=== PATIENT | male | born 1960 | race Caucasian/White ===

== ENCOUNTER 2025-01-29 22:33 | Inpatient (IN) | payer OTHER, SELFPAY ==
[2025-01-29 17:57] VITALS: BP 188/114
[2025-01-29 18:24] LABS: Hematocrit 38.7 % (39.0-52.0); Hemoglobin 13.2 g/dL (13.0-18.0); Mean Corp Hgb Conc. 34.1 g/dL (33.0-37.0); Mean Corpuscular Volume 83.9 fL (80.0-94.0); Nucleated Red Blood Cells % 0 % (-); Platelet Count 238 10^3/uL (130-400); Red Cell Dist. Width 15.5 % (11.5-14.5)
[2025-01-29 18:54] LABS: Blood Urea Nitrogen 10 mg/dl (9-20); Glucose 117 mg/dl (70-99)
[2025-01-29 18:55] LABS: AST (SGOT) 599 U/L (17-59); Albumin 4.7 g/dl (3.5-5.0); Alkaline Phosphatase 372 U/L (38-126); Calcium 9.5 mg/dl (8.4-10.2); Carbon Dioxide 24 mmol/L (22-30); Chloride 99 mmol/L (98-107); Lipase 262 U/L (23-300); Potassium 3.9 mmol/L (3.5-5.1); Sodium 132 mmol/L (135-145); Total Protein 7.7 g/dl (6.3-8.2); eGFR > 60.00
[2025-01-29 19:03] LABS: ALT (SGPT) 1002 U/L (0-50)
[2025-01-29 20:11] VITALS: BP 167/102
[2025-01-29 20:15] VITALS: BMI 26.9
--- NOTE | 2025-01-29 20:17 | ED.GENMED ---
History of Present Illness
General
Chief Complaint: Abdominal Pain
Source: patient, spouse and family
Exam Limitations: none
Time Seen by Provider: 01/29/25 19:58
Nursing documentation reviewed up to this point in time: agreed with
History of Present Illness
History of Present Illness:
64-year-old male presents with abdominal pain bloating nausea mild episode a week or so ago but improved worsened over this past weekend when he was on a trip social drinker not to excess, no IV drug use, no tattoos, daughter who is a PA thinks he
looks jaundiced, he had no exposure to seafood, he has no history of hepatitis
Review of Systems
Review of Systems
All Other Systems: Not applicable
Constitutional: Reports fatigue; Denies fever or weight loss
Respiratory: Reports no symptoms
ABD/GI: Reports abdominal pain and nausea; Denies diarrhea, bloody stools or black stools
Skin: Reports no symptoms
Neurological: Reports no symptoms
Psychiatric: Reports no symptoms
Phy Exam
Physical Exam
Physical Exam:
Physical Exam
General: no apparent distress, not acutely ill
Neck: +Jaundice
Heart: s1/s2 regular rate and rhythm, no murmur. equal radial pulses.
Lungs: no acute respiratory distress. clear bilaterally
Abdomen: Soft minimal diffuse tenderness no masses
Neuro: alert and oriented. no focal neurological deficits
Skin: no rash
Psychiatric: well kept. interactive and cooperative
Extremities: no edema.
Course
Orders/Labs/Results
Orders:
Orders
01/29/25 18:01
ECG [Electrocardiogram (*1)] Urgent
Reason for Study: Abdominal Pain
EKG- Treatment ONCE
01/29/25 18:11
Complete Blood Count/With Diff Urgent
Comprehensive Metabolic Panel Urgent
Direct Bilirubin Urgent
Comment: ADD ON
Lipase Urgent
01/29/25 19:58
HYDROmorphone [Dilaudid] 1 mg IV NOW STA
Ondansetron Injectable [Zofran] 4 mg IV NOW STA
01/29/25 19:59
CT Abd/pelvis W Iv Cont Urgent
Comment:
Reason For Exam: pain vomiting lfts up
01/29/25 20:06
Add On- LAB Urgent
Tests Added?: direct bilirubin
Abnormal Lab Results
01/29/25
18:11
RBC 4.61 L 10^6/uL
(4.70-6.10)
Hct 38.7 L %
(39.0-52.0)
RDW 15.5 H %
(11.5-14.5)
Abs Immat Gran (auto) 0.1 H 10^3/uL
(0-0.05)
Absolute Monos (auto) 0.7 H 10^3/uL
(0.1-0.6)
Immature Gran % 0.7 H %
(0-0.5)
Sodium 132 L mmol/L
(135-145)
Glucose 117 H mg/dl
(70-99)
Total Bilirubin 6.5 H mg/dl
(0.2-1.3)
Direct Bilirubin 5.0 H mg/dl
(0.0-0.4)
AST 599 H* U/L
(17-59)
ALT 1002 H* U/L
(0-50)
Alkaline Phosphatase 372 H U/L
(38-126)
01/29/25 18:11
01/29/25 18:11
Vital Signs
Initial and Last Documented VS:
Initial Vital Signs
Temp Pulse Resp BP Pulse Ox
98.1 F 85 18 188/114 97
01/29/25 17:57 01/29/25 17:57 01/29/25 17:57 01/29/25 17:57 01/29/25 17:57
Last Documented Vital Signs
Temp Pulse Resp BP Pulse Ox
98.1 F 70 20 167/102 99
01/29/25 17:57 01/29/25 20:20 01/29/25 20:20 01/29/25 20:11 01/29/25 20:18
MDM/Problems Addressed
Differential Diagnosis Includes:
Biliary obstruction pancreatitis gallbladder stone common duct stone mass malignancy acute hepatitis
MDM/Problems Addressed:
Abdominal pain LFTs out of abnormal
*Radiology
Radiology exam reviewed: radiology read reviewed
*Pulse Oximetry
SaO2: 99
Oxygen Mode of Delivery: Room air
Patient hypoxic: no
*EKG
Interpreted by ED Provider?: Yes
Interpretation: abnormal
Comparison EKG: no comparison EKG present
Heart Rate: 78
Rate: normal
Rhythm: sinus
Ischemia: non-specific ST changes
*[employer] Interpretation
Rate: normal
Interpretation: normal
Heart Rate: 78
Rhythm: sinus
*Critical Care Note
Total Time (30-74mins, 75-104mins- exclusive of procedures): Not Applicable
ED Attending Note
-
Portions of this chart may have been created with voice recognition software.� Occasional wrong word or��sound alike� substitutions may have occurred due to the inherent limitations of voice recognition software.
Discharge Plan
Departure
Prescriptions:
No Action
ascorbic acid (vitamin C) [Vitamin C] 500 mg Tablet
500 mg PO DAILY
vitamin B complex Tablet
1 tab PO DAILY
zinc 10 mg Tablet
10 mg PO DAILY
Referrals:
NONE,* [Family Provider, Internal Medicine]
Interventions
Interventions:
*Risk Screen - Suicide Last Done: 01/29/25 17:57
*General Assessment Last Done: 01/29/25 17:57
*Neglect/Abuse Screening Last Done: 01/29/25 20:16
*ED- Fall Risk Assessment Last Done: 01/29/25 20:16
*ED COVID-19 Vaccine History Last Done: 01/29/25 20:16
WO-Ixqpds-Vjrgjxaxvb Assessment Last Done: 01/29/25 20:16
Discharge Date and Time
Print Language: URUGUAYAN
[2025-01-29 21:19] VITALS: BP 163/99
[2025-01-29 22:00] VITALS: BP 108/62
--- NOTE | 2025-01-29 22:04 | HPS.HSE ---
Family Physician
-
Family Physician: * NONE
Chief Complaint
-
Jaundice
History of Present Illness
This is a 64-year-old male with past medical history significant for GERD who presents to the emergency department with worsening nausea and jaundice.
Patient essentially has no segment past medical history. Reports that about 1 week ago he had episode of nausea but improved. Over the weekend while he was on a trip he had recurrence of the nausea. The daughter who noticed that the patient looks
jaundiced. He is a social drinker without any excess alcohol use, denies IV drug use, has no history of tattoos and no history of hepatitis. Denies any right upper quadrant abdominal pain. He has not had any fevers. He denies having any chills.
There has been no night sweats. He reports a father with history of pancreatic cancer in his 80s.
In the emergency department he was initially hypertensive to 160/100 with a pulse of 70 and was satting 99% on room air.
CBC was unremarkable. Electrolytes were unremarkable with a sodium of 132. He had elevated total bilirubin of 6.5, direct of 5 and elevated AST and ALT to 601,000 respectively. Lipase was slightly elevated at 260. CT of the abdomen pelvis
showing diffuse bilaterally dilation likely secondary to ill-defined soft tissue lesion at the ampulla or pancreatic head. Probable metastatic lymphadenopathy in the upper abdomen as well as within the retroperitoneum. Scattered bibasilar early
pulmonary nodules noted which could possibly be metastasis.
Medical History
Past Medical History
Past Medical History: Reports GERD
Past Surgical History: Reports None
Social History
Tobacco: Non-smoker
Alcohol: Occasional
Personal:
Living: With Family
Employment: Retired
Family History
Family History: Not pertinent
Allergies / Home Medications
Allergies reflects when Allergies were last updated in [facility].
Home Medications with original date entered in [facility]
Allergy/Medication List:
Allergies
Allergy/AdvReac Type Severity Reaction Status Date / Time
No Known Allergies Allergy Unverified 01/29/25 17:58
Home Medications
Lactobacillus acidophilus (Acidophilus capsule) 1 cap PO DAILY 01/29/25
ascorbic acid (vitamin C) 500 mg tablet (Vitamin C) 1,000 mg PO DAILY 01/29/25
bismuth subsalicylate 262 mg/15 mL oral suspension (Pepto-Bismol) 524 mg PO ONCE PRN stomach upset 01/29/25
cholecalciferol (vitamin D3) 25 mcg (1,000 unit) capsule 25 mcg PO Q48H 01/29/25
grape seed extract 1 cap PO Q48H 01/29/25
ibuprofen 200 mg tablet 200 mg PO DAILYPRN PRN mild pain 01/29/25
lecithin 1 cap PO Q48H 01/29/25
red yeast rice 600 mg capsule 600 mg PO Q48H 01/29/25
vitamin A 1 cap PO DAILY 01/29/25
vitamin B complex 1 tab PO DAILY 01/29/25
zinc 1 tab PO DAILY 01/29/25
Review of Systems
-
Constitutional: Reports No Symptoms
EENT: Reports No Symptoms
Respiratory: Reports No Symptoms
Cardiac: Reports No Symptoms
Abdomen/GI: Reports No Symptoms
: Reports No Symptoms
Musculoskeletal: Reports No Symptoms
Skin: Reports No Symptoms
Neurological: Reports No Symptoms
Endocrine: Reports No Symptoms
Hematologic/Lymphatic: Reports No Symptoms
Psych: Reports No Symptoms
Physical Exam
Vital Signs
Vital Signs
Temp Pulse Resp BP Pulse Ox
98.1 F 70 20 167/102 99
01/29/25 17:57 01/29/25 20:20 01/29/25 20:20 01/29/25 20:11 01/29/25 20:18
Physical Exam
General: Well Developed, Well Nourished and No Apparent Distress
HEENT: NormoCephalic, Moist mucous membranes and Atraumatic; No Anicteric
Respiratory: Clear
Cardiac: S1/S2 and Regular Rhythm; No Murmur or Rub
GI: Soft, Non Tender, Non Distended and Normal Bowel Sounds; No Organomegaly
Rectal: Deferred by Provider
Musculoskeletal: No Clubbing, No Cyanosis and No Edema
Skin: No Rash
Neuro: Nonfocal/grossly intact
Laboratory Results
-
01/29/25 18:11
01/29/25 18:11
Laboratory Results
Total Bilirubin 6.5 mg/dl (0.2-1.3) H 01/29/25 18:11
AST 599 U/L (17-59) H* 01/29/25 18:11
ALT 1002 U/L (0-50) H* 01/29/25 18:11
Alkaline Phosphatase 372 U/L (38-126) H 01/29/25 18:11
Lipase 262 U/L (23-300) 01/29/25 18:11
Data Reviewed
-
CT Scan: Report Reviewed by me
Lab Data: Labs Reviewed by me
Old Records: Reviewed
Impression/Plan
-
IMPRESSION:
64-year-old male presenting with painless obstructive jaundice with mild nausea. 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 Anxious and vagal tone with news resulting in sinus bradycardia.
PLAN:
Ampullary/Pancreatic head lesion with obstructive jaundice
- admit to telemetry
- npo after midnight, iv fluids, antiemetics
- check ca 19 9, AFP and cea
- MRI/MRCP
- lorazepam prn anxiety
- GI consultation
DVT PPX - lovenox sq
Code status -Full code
[2025-01-29] MEDS: NSS 1000 IV (22:15)
[2025-01-29 23:00] VITALS: BP 161/91
[2025-01-30] VITALS (12 sets, daily range): BP systolic 139–162; BP diastolic 68–95; BMI 26.7
[2025-01-30] MEDS: ZOFRAN 4 MG IV (00:05)
[2025-01-30] MEDS: ATIVAN 0.5 MG PO ×2 (01:02→13:21)
[2025-01-30 07:42] LABS: AST (SGOT) 623 U/L (17-59); Albumin 4.5 g/dl (3.5-5.0); Alkaline Phosphatase 379 U/L (38-126); Blood Urea Nitrogen 7 mg/dl (9-20); Calcium 9.3 mg/dl (8.4-10.2); Carbon Dioxide 25 mmol/L (22-30); Chloride 101 mmol/L (98-107); Estimated Creatinine Clearance 114 ml/min; Glucose 100 mg/dl (70-99); Potassium 4.3 mmol/L (3.5-5.1); Sodium 134 mmol/L (135-145); Total Protein 7.2 g/dl (6.3-8.2); eGFR > 60.00
[2025-01-30 07:51] LABS: ALT (SGPT) 1023 U/L (0-50)
[2025-01-30 08:08] LABS: CEA 1.01 ng/ml
--- NOTE | 2025-01-30 09:04 | CON.GI ---
Addendum entered and electronically signed by Carmen Means DO 01/30/25 15:42:
patient off the floor for EUS/ERCP with Dr. Mcfadden
Original Note:
Consultation
-
Date/Time Consultation Requested: 01/30/25 0020
Date/Time Consultation Performed: 01/30/25 0900
Requesting Provider: Mami Torres MD
Performing Provider: HANDY Dodd, Carmen Means DO
Reason for Consultation: painless jaundice
Medical History
Chief Complaint / HPI
History of Present Illness:
Pt is a 64yo with hx GERD with new onset of change in stools about 1 1/2 weeks ago followed by onset of nausea, indigestion, dark urine, mild discomfort with eating over last few day. On admission noted with bili 6.5, d bili 5, AST 599, ALT 1002,
alk phos 372 with lipase of 262. Ct completed on admission with concern for diffuse biliary dilatation with ill defined soft tissue lesion at ampulla and pancreatic head duodenitis/pancreatitis not excluded, probable metastatic lymphadenopathy in
upper abdominal as well as retroperitoneum and left common iliac region with scattered pulm nodules likely mets.
Pt otherwise denies dysphagia, vomiting, wt loss, diarrhea, constipation or bleeding. No hx EGD/colonoscopy in past. Has not seen MD in several years. + family hx panc CA. No anticoagulation use. Rare NSAIDs. Pt on multiple supplements.
Past Medical History
Past Medical History: GERD (recent onset )
Past Surgical History: Tonsilectomy
Social History
Tobacco: Non-Smoker
Alcohol: Occasional
Drug: None
Personal:
Living: With Family
Employment: Retired (retired 2 months ago)
Family History
Family History: Other (father with pancreatic CA)
Allergies / Home Medications
Allergy/AdvReac Type Severity Reaction Status Date / Time
No Known Allergies Allergy Unverified 01/29/25 17:58
�Medication �Instructions �Recorded
Lactobacillus acidophilus 1 cap PO DAILY Supplement 01/29/25
(Acidophilus capsule)
ascorbic acid (vitamin C) 500 mg 1,000 mg PO DAILY Supplement 01/29/25
tablet (Vitamin C)
bismuth subsalicylate 262 mg/15 mL 524 mg PO ONCE PRN stomach upset 01/29/25
oral suspension (Pepto-Bismol)
cholecalciferol (vitamin D3) 25 25 mcg PO Q48H Supplement 01/29/25
mcg (1,000 unit) capsule
grape seed extract 1 cap PO Q48H Supplement 01/29/25
ibuprofen 200 mg tablet 200 mg PO DAILYPRN PRN mild pain 01/29/25
lecithin 1 cap PO Q48H Supplement 01/29/25
red yeast rice 600 mg capsule 600 mg PO Q48H Supplement 01/29/25
vitamin A 1 cap PO DAILY Supplement 01/29/25
vitamin B complex 1 tab PO DAILY Supplement 01/29/25
zinc 1 tab PO DAILY Supplement 01/29/25
Review of Systems
-
History Source: Patient
Constitutional: Reports No Symptoms
EENT: Reports No Symptoms
Respiratory: Reports No Symptoms
Abdomen/GI: Reports Abdominal Pain (minimal with eating ), Nausea (with indigestion ) and Other (change in stool color and floating stools )
: Reports Dark Urine
Musculoskeletal: Reports No Symptoms
Skin: Reports No Symptoms
Neurological: Reports No Symptoms
Endocrine: Reports No Symptoms
Hematologic/Lymphatic: Reports No Symptoms
Vital Signs
Temp Pulse Resp BP Pulse Ox
98.4 F 73 16 148/95 97
01/30/25 07:38 01/30/25 07:38 01/30/25 07:38 01/30/25 07:38 01/30/25 07:38
Physical Exam
Exam
General: Well Developed, Well Nourished and No Apparent Distress
HEENT: Other (jaundice )
Respiratory: Clear
Cardiac: Regular Rhythm
GI: Soft, Non Tender and Other (minimal upper abdominal fullness )
Musculoskeletal: No Clubbing and No Cyanosis
Skin: Warm and Dry
Neuro: Awake, Alert and AO x 3
Psych: Calm
Results
WBC 7.3 10^3/uL (4.8-10.8) 01/29/25 18:11
Hgb 13.2 g/dL (13.0-18.0) 01/29/25 18:11
Hct 38.7 % (39.0-52.0) L 01/29/25 18:11
MCV 83.9 fL (80.0-94.0) 01/29/25 18:11
Plt Count 238 10^3/uL (130-400) 01/29/25 18:11
Absolute Neuts (auto) 4.8 10^3/uL (1.4-6.5) 01/29/25 18:11
Sodium 134 mmol/L (135-145) L 01/30/25 06:41
Potassium 4.3 mmol/L (3.5-5.1) 01/30/25 06:41
Chloride 101 mmol/L (98-107) 01/30/25 06:41
Carbon Dioxide 25 mmol/L (22-30) 01/30/25 06:41
BUN 7 mg/dl (9-20) L 01/30/25 06:41
Creatinine 0.7 mg/dL (0.7-1.3) 01/30/25 06:41
Calcium 9.3 mg/dl (8.4-10.2) 01/30/25 06:41
Total Bilirubin 6.9 mg/dl (0.2-1.3) H 01/30/25 06:41
AST 623 U/L (17-59) H* 01/30/25 06:41
ALT 1023 U/L (0-50) H* 01/30/25 06:41
Alkaline Phosphatase 379 U/L (38-126) H 01/30/25 06:41
Lipase 262 U/L (23-300) 01/29/25 18:11
Diagnostic Image Results:
01/29/25 CT Abd/pelvis W Iv Cont
1. Diffuse biliary dilatation likely secondary to ill-defined soft tissue lesion/neoplasm at the ampulla or pancreatic head. This could be further evaluated with dedicated MRI/MRCP abdomen without and with gadolinium contrast.
2. Concomitant duodenitis/pancreatitis not excluded.
3. Probable metastatic lymphadenopathy in the upper abdomen as well as within the retroperitoneum and left common iliac regions.
4. Scattered bibasilar pulmonary nodules, likely metastases.
Prior GI Procedures:
EGD: none
Colonoscopy: none
Assessment / Plan
-
Pt is a 64yo with hx GERD with new onset of change in stools about 1 1/2 weeks ago followed by onset of nausea, indigestion, dark urine, mild discomfort with eating over last few day. On admission noted with bili 6.5, d bili 5, AST 599, ALT 1002,
alk phos 372 with lipase of 262. Ct completed on admission with concern for diffuse biliary dilatation with ill defined soft tissue lesion at ampulla and pancreatic head duodenitis/pancreatitis not excluded, probable metastatic lymphadenopathy in
upper abdominal as well as retroperitoneum and left common iliac region with scattered pulm nodules likely mets. No hx EGD/colonoscopy in past. Has not seen MD in several years. + family hx panc CA
-new onset jaundice with new onset indigestion, nausea, minimal epigastric pain, dark urine and change in stool
-increased LFT's
-CT concerning for panc head lesion, duodenitis/pancreatitis with adenopathy and lung lesion
-family hx panc CA
PLAN:
etiology of symptoms with LFT elevation concern for obstructive jaundice - possible mass with mets per CT
for MRI but will need orbital film first prior to proceeding
plan for likely EUS/ERCP later today -- pt willing to proceed with or without MRI being completed NPO
add INR, hold Lovenox (not started yet) and add compression stocking for DVT prophylaxis
cont NPO
family at bedside updated
-
-
Thank you for consultation and allowing me to participate in the patient's care. Please call the animal nutrition consultant GI physician during the after hours with any questions or concerns.
[2025-01-30 11:38] LABS: INR 0.86; PT 12.3 Sec (11.4-14.6)
--- NOTE | 2025-01-30 13:41 | W.PN.HOSP.TC ---
Today's Communication/Plan
-
see A/P
Assessment / Plan
Assessment / Plan
HPI: 64-year-old male with past medical history significant for GERD; p/w painless obstructive jaundice with mild nausea.
His total bilirubin noted to be elevated at 6.5, direct of 5, and elevated AST and ALT to 601 and 1000, respectively. Lipase was slightly elevated at 260.
CT AP:
1. Diffuse biliary dilatation likely secondary to ill-defined soft tissue lesion/neoplasm at the ampulla or pancreatic head. This could be further evaluated with dedicated MRI/MRCP abdomen without and with gadolinium contrast.
2. Concomitant duodenitis/pancreatitis not excluded.
3. Probable metastatic lymphadenopathy in the upper abdomen as well as within the retroperitoneum and left common iliac regions.
4. Scattered bibasilar pulmonary nodules, likely metastases.
A/P:
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
Check MRCP,
GI on board for plan of ERCP
Onc CS following ERCP
NPO with maintenance iv fluids,
antiemetic PRN
Follow ca 19-9, and AFP; CEA at 1.01
# Mild hyponatremia
Sodium level at 134 today
DVT PPX - Lovenox sq
Code status -Full code
DW and son at bedside
total time spent 51 min
Anticipated Discharge: > 48 hours
Subjective/Interval History
-
Date of Service: January 30, 2025
Objective Data
-
Labs:
Laboratory Results
01/30/25 01/30/25
06:41 11:19
PT 12.3
INR 0.86
Sodium 134 L
Potassium 4.3
Chloride 101
Carbon Dioxide 25
BUN 7 L
Creatinine 0.7
Glucose 100 H
Calcium 9.3
Total Bilirubin 6.9 H
AST 623 H*
ALT 1023 H*
Alkaline Phosphatase 379 H
Vital Signs:
Vital Signs
Temp Pulse Resp BP Pulse Ox
37.0 C 68 16 144/83 97
01/30/25 11:12 01/30/25 11:12 01/30/25 11:12 01/30/25 11:12 01/30/25 11:12
I&O
01/29/25 01/30/25 01/31/25
06:59 06:59 06:59
Intake Total 0 / 0
Balance 0 / 0
Review of Systems
-
All other systems: Reviewed and negative
Constitutional: Reports No Symptoms
Physical Exam
-
General: Well Developed, Well Nourished, No Apparent Distress, Comfortable and Conversant; Negative Respiratory Distress
HEENT: Normocephalic, Atraumatic, Nose Appears Normal and Ears Appear Normal; Negative Oxygen
Respiratory: Clear to Auscultation and Non Labored Respirations; Negative Accessory Resp Muscle Use
Cardiac: Regular Rhythm and S1/S2
GI: Soft, Nontender, Nondistended and Normal Bowel Sounds
Skin: Warm, Dry and Jaundice
Neuro: Awake, Alert, Oriented, AO x 3 and Nonfocal/Grossly Intact
Psych: Calm and Intact Judgement/Insight
Data Reviewed
-
CT Scan: Report Reviewed by me
Labs: Labs Reviewed by me
--- NOTE | 2025-01-30 16:32 | CM ---
Alert awake oriented patient who lives with his Corine who lives in a 2 story home with 2 step to enter and 11 steps to bed and bathroom. He is independent in driving and in all activities of daily living.He was offered VN he declined need.
No VN hx / No SNF history
Pharmacy [facility] new pt
PLAN Home Declined VN
[2025-01-30 18:14] LABS: AFP Male/Tumor Marker 1.75 ng/ml
[2025-01-30] MEDS: COMPAZINE 5 MG IV (20:24)
--- NOTE | 2025-01-30 20:25 | PTCARENOTE ---
Received patient from PACU s/p upper endoscopic ultrasound/EGD. Patient stood and pivoted from stretcher to bed x1 assist. Patient reporting nausea, APPRENTICE PLUMBER made aware. 1x dose of compazine ordered and given. Plan of care ongoing.
[2025-01-30] MEDS: LR 1000 IV (20:36)
[2025-01-31] VITALS (7 sets, daily range): BP systolic 128–146; BP diastolic 79–86
--- NOTE | 2025-01-31 05:42 | W.PN.GI.CBS2 ---
Today's Communication / Plan
-
F/u repeat LFTs from AM labs and await path results. 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 If LFTs improving, can likely be discharged later this evening versus tomorrow. Will coordinate repeat labs
as outpatient and f/u with Dr. Mcfadden. See rest of care as outlined below.
Assessment / Plan
-
Pt is a 64yo with hx GERD with new onset of change in stools about 1 1/2 weeks ago followed by onset of nausea, indigestion, dark urine, mild discomfort with eating over last few day. On admission noted with bili 6.5, d bili 5, AST 599, ALT 1002,
alk phos 372 with lipase of 262. Ct completed on admission with concern for diffuse biliary dilatation with ill defined soft tissue lesion at ampulla and pancreatic head duodenitis/pancreatitis not excluded, probable metastatic lymphadenopathy in
upper abdominal as well as retroperitoneum and left common iliac region with scattered pulm nodules likely mets. No hx EGD/colonoscopy in past. Has not seen MD in several years. + family hx panc CA.
-new onset jaundice with new onset indigestion, nausea, minimal epigastric pain, dark urine and change in stool
-increased LFT's
-CT concerning for panc head lesion, duodenitis/pancreatitis with adenopathy and lung lesion
-family hx panc CA
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
along with one pancreatic stent
Recommendations:
- Tolerating CLD, may ADAT later this afternoon
- Follow-up AM labs to ensure down-trending LFTs. If improving can likely be discharged later this evening versus tomorrow over weekend
- Await pathology results, still pending
- Will coordinate close f/u with Dr. Mcfadden for stent retrieval/exchanges as outpatient
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
- Pain control and IV anti-emetics PRN
Discussed with primary internal medicine team this AM. GI will continue to follow.
Subjective
Subjective
Date of Service: January 31, 2025
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
along with one pancreatic stent
- AM labs pending including LFTs
Reports feeling well and without any abdominal pain or discomfort. Denies any nausea/vomiting. Tolerating CLD without difficulty. No other fevers or chills. Reviewed recent EUS/ERCP findings as well early this AM, pathology still pending.
Objective
Data Reviewed
Laboratory Data:
Laboratory Results
PT 12.3 Sec (11.4-14.6) 01/30/25 11:19
INR 0.86 01/30/25 11:19
Total Bilirubin 6.9 mg/dl (0.2-1.3) H 01/30/25 06:41
AST 623 U/L (17-59) H* 01/30/25 06:41
ALT 1023 U/L (0-50) H* 01/30/25 06:41
Alkaline Phosphatase 379 U/L (38-126) H 01/30/25 06:41
Lipase 262 U/L (23-300) 01/29/25 18:11
Vital Signs and I&O:
Vital Signs
Temp Pulse Resp BP Pulse Ox
97.9 F 72 18 135/86 98
01/31/25 03:36 01/31/25 03:36 01/31/25 03:36 01/31/25 03:36 01/31/25 03:36
I&O
01/29/25 01/30/25 01/31/25
06:59 06:59 06:59
Intake Total 0 / 0 200 / 200
Balance 0 / 0 200 / 200
Physical Exam
Physical Exam
HEENT: Other (+Scleral icterus)
Pulmonary: Other (Normal WOB on room air)
GI: Soft, Non Distended and Non Tender
Extremities: No Edema and Other (Diffuse jaundice)
Neuro: Non Focal
[2025-01-31 08:02] LABS: Hematocrit 39.5 % (39.0-52.0); Hemoglobin 13.4 g/dL (13.0-18.0); Mean Corp Hgb Conc. 33.9 g/dL (33.0-37.0); Mean Corpuscular Volume 83.9 fL (80.0-94.0); Platelet Count 260 10^3/uL (130-400); Red Cell Dist. Width 15.4 % (11.5-14.5)
[2025-01-31 08:33] LABS: AST (SGOT) 705 U/L (17-59); Albumin 4.4 g/dl (3.5-5.0); Alkaline Phosphatase 345 U/L (38-126); Blood Urea Nitrogen 14 mg/dl (9-20); Calcium 9.2 mg/dl (8.4-10.2); Carbon Dioxide 22 mmol/L (22-30); Chloride 101 mmol/L (98-107); Estimated Creatinine Clearance > 125 ml/min; Glucose 124 mg/dl (70-99); Magnesium 1.9 mg/dl (1.6-2.3); Potassium 4.4 mmol/L (3.5-5.1); Sodium 133 mmol/L (135-145); Total Protein 7.0 g/dl (6.3-8.2); eGFR > 60.00
[2025-01-31 08:42] LABS: ALT (SGPT) 1157 U/L (0-50)
--- NOTE | 2025-01-31 09:40 | W.PN.HOSP.TC ---
Today's Communication/Plan
-
see A/P
Assessment / Plan
Assessment / Plan
HPI: 64-year-old male with past medical history significant for GERD; p/w painless obstructive jaundice with mild nausea.
His total bilirubin noted to be elevated at 6.5, direct of 5, and elevated AST and ALT to 601 and 1000, respectively. Lipase was slightly elevated at 260.
CT AP:
1. Diffuse biliary dilatation likely secondary to ill-defined soft tissue lesion/neoplasm at the ampulla or pancreatic head. This could be further evaluated with dedicated MRI/MRCP abdomen without and with gadolinium contrast.
2. Concomitant duodenitis/pancreatitis not excluded.
3. Probable metastatic lymphadenopathy in the upper abdomen as well as within the retroperitoneum and left common iliac regions.
4. Scattered bibasilar pulmonary nodules, likely metastases.
A/P:
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
# Transaminitis due to above
s/p EGD, EUS and ERCP 01/30:
EGD: severe mucosal changes, nodularity, congestion and friability (with contact bleeding) were found in the second portion of the duodenum and in the area of the papilla.
EUS: Pancreatic parenchymal abnormalities, A mass was found in the lower third of the main bile duct and in the intraduodenal bile duct. Tissue has not been obtained. Ampullary/periampullary neoplasm vs infiltrating pancreatic neoplasm, favor
ampullary lesion. A mass like was found in the ampulla.
Five enlarged lymph nodes were visualized in the celiac region. Cytology results are pending. Fine needle biopsy performed.
ERCP:
- The major papilla appeared to have a mass like lesion suspicious for duodenal adenocarcinoma vs ampullary neoplasm.
- Biopsies were taken in the ampulla, in the second portion of the duodenum and in the area of the papilla.
- A single severe biliary stricture was found in the lower third of the main bile duct. The stricture was malignant appearing.
- The common bile duct was severely dilated.
- A biliary sphincterotomy was performed.
- Cells for cytology obtained in the lower third of the main bile duct.
- Biopsy was performed in the lower third of the main bile duct.
- One covered metal stent was placed into the common bile duct.
- One plastic stent was placed into the common hepatic duct.
- One pancreatic stent was placed into the ventral pancreatic duct.
Per GI, will coordinate close f/u with Dr. Mcfadden for stent retrieval/exchanges as outpatient
Onc CS today
Currently on clears, ADAT
Monitor LFT
antiemetic PRN
Follow ca 19-9; AFP level 1.75; CEA level 1.01
# Mild hyponatremia
Sodium level at 133 today
DVT PPX - Lovenox sq
Code status -Full code
DW at bedside
total time spent 51 min
Anticipated Discharge: Within 24 hours
Subjective/Interval History
-
Date of Service: January 31, 2025
Objective Data
-
Labs:
Laboratory Results
01/31/25
07:08
WBC 6.9
Hgb 13.4
Hct 39.5
Plt Count 260
Sodium 133 L
Potassium 4.4
Chloride 101
Carbon Dioxide 22
BUN 14
Creatinine 0.6 L
Glucose 124 H
Calcium 9.2
Total Bilirubin 4.2 H
AST 705 H*
ALT 1157 H*
Alkaline Phosphatase 345 H
Vital Signs:
Vital Signs
Temp Pulse Resp BP Pulse Ox
36.6 C 70 18 146/86 99
01/31/25 07:53 01/31/25 07:53 01/31/25 07:53 01/31/25 07:53 01/31/25 07:53
I&O
01/30/25 01/31/25 02/01/25
06:59 06:59 06:59
Intake Total 0 / 0 200 / 200
Output Total 350 / 350
Balance 0 / 0 200 / 200 -350 / -350
Review of Systems
-
All other systems: Reviewed and negative
Constitutional: Reports No Symptoms
Physical Exam
-
General: Well Developed, Well Nourished, No Apparent Distress, Comfortable and Conversant; Negative Respiratory Distress
HEENT: Normocephalic, Atraumatic, Nose Appears Normal and Ears Appear Normal; Negative Oxygen
Respiratory: Clear to Auscultation and Non Labored Respirations; Negative Accessory Resp Muscle Use
Cardiac: Regular Rhythm and S1/S2
GI: Soft, Nontender, Nondistended and Normal Bowel Sounds
Skin: Warm, Dry and Jaundice
Neuro: Awake, Alert, Oriented, AO x 3 and Nonfocal/Grossly Intact
Psych: Calm and Intact Judgement/Insight
Data Reviewed
-
CT Scan: Report Reviewed by me
Medical Tests (Nuc Med, Echo etc): Report Reviewed by me (ERCP, EUS, EGD reports)
Labs: Labs Reviewed by me
[2025-01-31] MEDS: ATIVAN 0.5 MG PO (10:25)
--- NOTE | 2025-01-31 15:11 | CON.ONC ---
Consultation
-
Date Consultation Requested: 01/31/25
Date Consultation Performed: 01/31/25
Requesting Provider: rachel hernandez
Performing Provider: geoffrey ramirez
Reason for Consultation: duodenal/ampullary cancer
Impression
Impression
- obstructive jaundice
- ampullary mass
- metastatic abdominal/retroperitoneal adenopathy
- multiple lung nodules
Plan
Plan
- await path from ampullary mass.
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 Nodules likely too small to biopsy. can arrange for outpt PET/CT however largest 9 mm so all may be too small to show
uptake.
- LFTs improving s/p stent placement.
- will arrange outpt oncology follow up to discuss next steps in management.
Patient History
History of Present Illness
Pt is a 64yo with hx GERD who presented with new jaundice, worsening indigestion and dark stools. Labs on admission notable for bili 6.5, d bili 5, AST 599, ALT 1002, alk phos 372 with lipase of 262. CT A/P showed diffuse biliary dilatation with
ill defined soft tissue lesion at ampulla and pancreatic head duodenitis/pancreatitis not excluded, probable metastatic lymphadenopathy in upper abdominal as well as retroperitoneum and left common iliac region with scattered pulm nodules likely
mets. He underwent ERCP/EUS with stent placement. ERCP revealed a infiltrative mass arising from duodenal adenoma vs. ampullary carcinoma, bx pending. CT chest showed multiple bilateral lung nodules measuring up to 9 mm suspicious for metastases.
no adenopathy. 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 LFTs today showing down trend with T bili now 4.2. He notes improvement in jaundice, urine clearing up. Family hx of
pancreatic cancer in his father in his 80s. Pt denies ETOH use, non-smoker. He has no chronic medical conditions and is very active.
Patient Medication
�Medication �Instructions �Recorded �Confirmed �Last Taken �Type
Lactobacillus acidophilus 1 cap PO DAILY Supplement 01/29/25 01/29/25 1 Week Ago History
(Acidophilus capsule) ~01/22/25
ascorbic acid (vitamin C) 500 mg 1,000 mg PO DAILY Supplement 01/29/25 01/29/25 1 Week Ago History
tablet (Vitamin C) ~01/22/25
bismuth subsalicylate 262 mg/15 mL 524 mg PO ONCE PRN stomach upset 01/29/25 01/29/25 01/29/25 History
oral suspension (Pepto-Bismol)
cholecalciferol (vitamin D3) 25 25 mcg PO Q48H Supplement 01/29/25 01/29/25 1 Week Ago History
mcg (1,000 unit) capsule ~01/22/25
grape seed extract 1 cap PO Q48H Supplement 01/29/25 01/29/25 1 Week Ago History
~01/22/25
ibuprofen 200 mg tablet 200 mg PO DAILYPRN PRN mild pain 01/29/25 01/29/25 1 Day Ago History
~01/28/25
lecithin 1 cap PO Q48H Supplement 01/29/25 01/29/25 1 Week Ago History
~01/22/25
red yeast rice 600 mg capsule 600 mg PO Q48H Supplement 01/29/25 01/29/25 1 Week Ago History
~01/22/25
vitamin A 1 cap PO DAILY Supplement 01/29/25 01/29/25 1 Week Ago History
~01/22/25
vitamin B complex 1 tab PO DAILY Supplement 01/29/25 01/29/25 1 Week Ago History
~01/22/25
zinc 1 tab PO DAILY Supplement 01/29/25 01/29/25 1 Week Ago History
~01/22/25
Active Medications
Generic Name Dose Route Start Last Admin
Trade Name Freq PRN Reason Stop Dose Admin
Acetaminophen 650 mg 01/30/25 00:20
Acetaminophen 325 Mg Tablet PO 02/27/25 00:19
Q4HPRN PRN
mild pain/BAILEY/temp> 100.4F
Bisacodyl 10 mg 01/30/25 00:20
Bisacodyl 10 Mg Rectal Suppository RECTAL 02/27/25 00:19
[id number] PRN
constipation
Lactated Ringer's 1,000 mls @ 80 mls/hr 01/30/25 17:00 01/30/25 20:36
Lr IV 1,000 mls
.[id number] CHRIS Administration
Lorazepam 0.5 mg 01/30/25 00:20 01/31/25 10:25
Lorazepam 0.5 Mg Tablet PO 02/27/25 00:19 0.5 mg
[id number] PRN Administration
anxiety
Ondansetron HCl 4 mg 01/29/25 23:58 01/30/25 00:05
Ondansetron 4 Mg/2 Ml Vial IV 02/26/25 23:57 4 mg
Q6HPRN PRN Administration
nausea and vomiting
Oxycodone HCl 5 mg 01/30/25 00:20
Oxycodone 5 Mg Regular Release Tablet PO 02/13/25 00:19
Q4HPRN PRN
moderate pain
Polyethylene Glycol 17 grams 01/30/25 00:20
Polyethylene Glycol Powder 17 Grams Packet PO 02/27/25 00:19
DAILYPRN PRN
constipation
Senna/Docusate Sodium 1 tablet 01/30/25 00:20
Docusate W/Senna (Jennifer-Colace) Tablet PO 02/27/25 00:19
BIDPRN PRN
constipation
Sodium Chloride 0 flush 01/30/25 01:00
Sodium Chloride 0.9% (Flush) Syringe IV 02/27/25 00:59
PER PROTOCOL CHRIS
Review of Systems
-
History Source: Patient
Constitutional: Reports Weight Loss; Denies Fever
Respiratory: Denies Cough or Trouble Breathing
Cardiac: Denies Chest Pain
GI: Reports Abdominal Pain, Nausea and Indigestion; Denies Vomiting, Bloody Stools or Black Stools
Musculoskeletal: Denies Joint Pain
Physical Exam
-
General: Well Developed, Well Nourished and No Apparent Distress
HEENT: Jaundice
Cardiology: Normal Sinus Rhythm
Pulmonary: Clear
GI: Soft and Normal Bowel Sounds; Negative Distended
Musculoskeletal: No Cyanosis and No Edema
Extremities: Negative Edema
Neurology: Non Focal and No Lateralizing Symptoms
Hematologic / Lymphatic: No Lymphadenopathy
Psych: Calm
Labs
Lab Results
WBC 6.9 10^3/uL (4.8-10.8) 01/31/25 07:08
RBC 4.71 10^6/uL (4.70-6.10) 01/31/25 07:08
Hgb 13.4 g/dL (13.0-18.0) 01/31/25 07:08
Hct 39.5 % (39.0-52.0) 01/31/25 07:08
MCV 83.9 fL (80.0-94.0) 01/31/25 07:08
MCH 28.5 pg (27.0-31.0) 01/31/25 07:08
MCHC 33.9 g/dL (33.0-37.0) 01/31/25 07:08
RDW 15.4 % (11.5-14.5) H 01/31/25 07:08
Plt Count 260 10^3/uL (130-400) 01/31/25 07:08
MPV 10.1 fL (7.4-10.4) 01/31/25 07:08
Abs Immat Gran (auto) 0.1 10^3/uL (0-0.05) H 01/29/25 18:11
Absolute Neuts (auto) 4.8 10^3/uL (1.4-6.5) 01/29/25 18:11
Absolute Lymphs (auto) 1.5 10^3/uL (1.2-3.4) 01/29/25 18:11
Absolute Monos (auto) 0.7 10^3/uL (0.1-0.6) H 01/29/25 18:11
Absolute Eos (auto) 0.1 10^3/uL (0-0.7) 01/29/25 18:11
Absolute Basos (auto) 0.1 10^3/uL (0-0.2) 01/29/25 18:11
Immature Gran % 0.7 % (0-0.5) H 01/29/25 18:11
Neutrophils % 66.6 % (42.2-75.2) 01/29/25 18:11
Lymphocytes % 21.2 % (20.5-51.1) 01/29/25 18:11
Monocytes % 9.2 % (1.7-9.3) 01/29/25 18:11
Eosinophils % 1.5 % (0-6) 01/29/25 18:11
Basophils % 0.8 % (0-2) 01/29/25 18:11
Creatinine 0.6 mg/dL (0.7-1.3) L 01/31/25 07:08
Vital Signs
Vital Signs
Temp Pulse Resp BP Pulse Ox
98 F 63 18 138/83 98
01/31/25 14:00 01/31/25 14:00 01/31/25 14:00 01/31/25 14:00 01/31/25 14:00
[2025-01-31] MEDS: LR IV (16:47)
[2025-01-31] MEDS: LR 1000 IV (16:52)
[2025-02-01 03:34] VITALS: BP 142/87
--- NOTE | 2025-02-01 06:24 | W.PN.GI.CBS2 ---
Today's Communication / Plan
-
Pending HIDA scan given concern for possible CD obstruction as mentioned on MRI. See rest of care as outlined below.
Assessment / Plan
-
Pt is a 64yo with hx GERD with new onset of change in stools about 1 1/2 weeks ago followed by onset of nausea, indigestion, dark urine, mild discomfort with eating over last few day. On admission noted with bili 6.5, d bili 5, AST 599, ALT 1002,
alk phos 372 with lipase of 262. Ct completed on admission with concern for diffuse biliary dilatation with ill defined soft tissue lesion at ampulla and pancreatic head duodenitis/pancreatitis not excluded, probable metastatic lymphadenopathy in
upper abdominal as well as retroperitoneum and left common iliac region with scattered pulm nodules likely mets. No hx EGD/colonoscopy in past. Has not seen MD in several years. + family hx panc CA.
#Ampullary Mass c/f Malignancy (path pending) c/b
#Biliary Obstruction #Obstructive Jaundice
#GB distension and GB wall thickening
#Metastatic Adenopathy #Pulmonary Nodules suspicious for Mets
#Elevated LFTs
-increased LFT's
-CT concerning for panc head lesion, duodenitis/pancreatitis with adenopathy and lung lesion
-family hx panc CA
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
along with one pancreatic stent
- LFTs down-trending since EUS/ERCP on 01/30 with down-trending T Bili 6.9 -> 4.2 -> 3.7
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
(possibly persistent obstruction of cystic duct), acute interstitial edematous pancreatitis, moderate colonic diverticulosis
- CT Chest 01/31/25: Multiple bilateral upper and lower lobe pulmonary nodules measuring up to 9 mm. Highly suspicious for metastatic disease; mild mediastinal lymphadenopathy; lobular masslike soft tissue density in the superior segment of left
lower lobe measuring up to 1.2 cm. Could represent nodular mucous plugging. Cannot entirely exclude an endobronchial process, such as infection or neoplasm
Recommendations:
- Keep NPO pending HIDA
- Very low suspicion for cystic duct obstruction or cholecystitis as without any RUQ abd pain or other concerning symptoms
- However, given MRI revealing concern for cystic duct obstruction and GB wall thickening (suspect all reactive secondary to previous biliary obstruction), favor obtaining a HIDA scan
- Ordered HIDA scan for further evaluation and improved T bili
- Continue to trend LFTs q daily T bili improving although still with elevated transaminases
- Await pathology results, still pending
- Have sent message to office to further coordinate close f/u with Dr. Mcfadden for stent retrieval/exchanges as outpatient
- Oncology following, appreciate recs
- Pain control and IV anti-emetics PRN
- Rest of care as per primary team
Discussed with primary internal medicine team this AM. GI will continue to follow.
Subjective
Subjective
Date of Service: February 01, 2025
- LFTs down-trending since EUS/ERCP on 01/30 with down-trending T Bili 6.9 -> 4.2 -> 3.7
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
(possibly persistent obstruction of cystic duct), acute interstitial edematous pancreatitis, moderate colonic diverticulosis
- CT Chest 01/31/25: Multiple bilateral upper and lower lobe pulmonary nodules measuring up to 9 mm. Highly suspicious for metastatic disease; mild mediastinal lymphadenopathy; lobular masslike soft tissue density in the superior segment of left
lower lobe measuring up to 1.2 cm. Could represent nodular mucous plugging. Cannot entirely exclude an endobronchial process, such as infection or neoplasm
- Otherwise, no acute events overnight
Feeling well, resting comfortably this AM. Continues to deny any abdominal pain or right-sided upper abdominal discomfort without any nausea or vomiting.
Objective
Data Reviewed
Laboratory Data:
Laboratory Results
01/31/25 07:08
Laboratory Results
PT 12.3 Sec (11.4-14.6) 01/30/25 11:19
INR 0.86 01/30/25 11:19
Magnesium 1.9 mg/dl (1.6-2.3) 01/31/25 07:08
Total Bilirubin 4.2 mg/dl (0.2-1.3) H 01/31/25 07:08
AST 705 U/L (17-59) H* 01/31/25 07:08
ALT 1157 U/L (0-50) H* 01/31/25 07:08
Alkaline Phosphatase 345 U/L (38-126) H 01/31/25 07:08
Lipase 262 U/L (23-300) 01/29/25 18:11
Vital Signs and I&O:
Vital Signs
Temp Pulse Resp BP Pulse Ox
98.5 F 70 18 142/87 96
02/01/25 03:34 02/01/25 03:34 02/01/25 03:34 02/01/25 03:34 02/01/25 03:34
I&O
01/30/25 01/31/25 02/01/25
06:59 06:59 06:59
Intake Total 0 / 0 200 / 200 2039 / 2039
Output Total 350 / 350
Balance 0 / 0 200 / 200 1690 / 1690
Physical Exam
Physical Exam
HEENT: Moist mucous membranes and Other (+Scleral icterus)
Pulmonary: Other (Normal WOB on room air)
GI: Soft, Non Distended and Non Tender
Extremities: No Edema
Neuro: Non Focal
[2025-02-01 07:30] VITALS: BP 160/96
[2025-02-01 07:38] LABS: CA 19-9 654 U/mL (<=35)
[2025-02-01 08:40] LABS: AST (SGOT) 690 U/L (17-59); Albumin 4.6 g/dl (3.5-5.0); Alkaline Phosphatase 324 U/L (38-126); Blood Urea Nitrogen 15 mg/dl (9-20); Calcium 9.2 mg/dl (8.4-10.2); Carbon Dioxide 26 mmol/L (22-30); Chloride 101 mmol/L (98-107); Estimated Creatinine Clearance 100 ml/min; Glucose 88 mg/dl (70-99); Potassium 4.2 mmol/L (3.5-5.1); Sodium 137 mmol/L (135-145); Total Protein 7.2 g/dl (6.3-8.2); eGFR > 60.00
[2025-02-01 08:53] LABS: ALT (SGPT) 1295 U/L (0-50)
--- NOTE | 2025-02-01 10:02 | W.PN.HOSP.TC ---
Addendum entered and electronically signed by Dona Chinchilla MD 02/10/25 07:23:
# Pancreatic adenocarcinoma with possible pulmonary metastasis
Addendum entered and electronically signed by Dona Chinchilla MD 02/01/25 14:29:
HIDA scan:
There is no evidence for gallbladder activity on hepatobiliary scan. In the correct clinical setting, this finding could indicate cholecystitis. However, this finding is nonspecific, particularly in light of possible mass/neoplasia as well as recent
ERCP procedure and stent placement.
There is no evidence for bile duct obstruction, with with progressive excretion of radiotracer through the common bile duct into the small bowel.
Discussed HIDA scan findings with GI Dr. Kuo. He feels this is all reactive as patient is largely clinically asymptomatic.
No need for surgery consult. Okay for discharge
Total DC time 45 minutes
Original Note:
Today's Communication/Plan
-
see A/P
Assessment / Plan
Assessment / Plan
HPI: 64-year-old male with past medical history significant for GERD; p/w painless obstructive jaundice with mild nausea.
His total bilirubin noted to be elevated at 6.5, direct of 5, and elevated AST and ALT to 601 and 1000, respectively. Lipase was slightly elevated at 260.
CT AP:
1. Diffuse biliary dilatation likely secondary to ill-defined soft tissue lesion/neoplasm at the ampulla or pancreatic head. This could be further evaluated with dedicated MRI/MRCP abdomen without and with gadolinium contrast.
2. Concomitant duodenitis/pancreatitis not excluded.
3. Probable metastatic lymphadenopathy in the upper abdomen as well as within the retroperitoneum and left common iliac regions.
4. Scattered bibasilar pulmonary nodules, likely metastases.
A/P:
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
# Transaminitis due to above
s/p EGD, EUS and ERCP 01/30:
EGD: severe mucosal changes, nodularity, congestion and friability (with contact bleeding) were found in the second portion of the duodenum and in the area of the papilla.
EUS: Pancreatic parenchymal abnormalities, A mass was found in the lower third of the main bile duct and in the intraduodenal bile duct. Tissue has not been obtained. Ampullary/periampullary neoplasm vs infiltrating pancreatic neoplasm, favor
ampullary lesion. A mass like was found in the ampulla.
Five enlarged lymph nodes were visualized in the celiac region. Cytology results are pending. Fine needle biopsy performed.
ERCP:
- The major papilla appeared to have a mass like lesion suspicious for duodenal adenocarcinoma vs ampullary neoplasm.
- Biopsies were taken in the ampulla, in the second portion of the duodenum and in the area of the papilla.
- A single severe biliary stricture was found in the lower third of the main bile duct. The stricture was malignant appearing.
- The common bile duct was severely dilated.
- A biliary sphincterotomy was performed.
- Cells for cytology obtained in the lower third of the main bile duct.
- Biopsy was performed in the lower third of the main bile duct.
- One covered metal stent was placed into the common bile duct.
- One plastic stent was placed into the common hepatic duct.
- One pancreatic stent was placed into the ventral pancreatic duct.
Per GI, will coordinate close f/u with Dr. Mcfadden for stent retrieval/exchanges as outpatient
Follow path reports either in or outpt
Appreciate Onc input
MRCP confirmed:
1. 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
2. METASTATIC JEREMI HEPATIS and RETROPERITONEAL LYMPHADENOPATHY.
3. Interval decrease in now mild intrahepatic biliary dilatation following biliary stent placement.
4. Severe gallbladder distention (possibly persistent obstruction of the cystic duct).
5. Acute interstitial edematous pancreatitis.
6. Moderate colonic diverticulosis.
HIDA ordered 2/2 cystic duct dilation shown in MRCP
NPO for HIDA
Monitor LFT
antiemetic PRN
Follow ca 19-9; AFP level 1.75; CEA level 1.01
# Mild hyponatremia
Sodium level at 133 today
DVT PPX - Lovenox sq
Code status -Full code
DW GI
DW at bedside
Anticipated Discharge: Within 24 hours
Subjective/Interval History
-
Date of Service: February 01, 2025
Objective Data
-
Labs:
Laboratory Results
02/01/25
07:32
Sodium 137
Potassium 4.2
Chloride 101
Carbon Dioxide 26
BUN 15
Creatinine 0.8
Glucose 88
Calcium 9.2
Total Bilirubin 3.7 H
AST 690 H*
ALT 1295 H*
Alkaline Phosphatase 324 H
Vital Signs:
Vital Signs
Temp Pulse Resp BP Pulse Ox
36.3 C 68 16 160/96 98
02/01/25 07:30 02/01/25 07:30 02/01/25 07:30 02/01/25 07:30 02/01/25 07:30
I&O
01/31/25 02/01/25 02/02/25
06:59 06:59 06:59
Intake Total 200 / 200 2520 / 2520
Output Total 350 / 350
Balance 200 / 200 2170 / 2170
Review of Systems
-
All other systems: Reviewed and negative
Constitutional: Reports No Symptoms
Abdomen/GI: Denies Abdominal Pain
Physical Exam
-
General: Well Developed, Well Nourished, No Apparent Distress, Comfortable and Conversant; Negative Respiratory Distress
HEENT: Normocephalic, Atraumatic, Nose Appears Normal and Ears Appear Normal; Negative Oxygen
Respiratory: Clear to Auscultation and Non Labored Respirations; Negative Accessory Resp Muscle Use
Cardiac: Regular Rhythm and S1/S2
GI: Soft, Nontender, Nondistended and Normal Bowel Sounds
Skin: Warm, Dry and Jaundice
Neuro: Awake, Alert, Oriented, AO x 3 and Nonfocal/Grossly Intact
Psych: Calm and Intact Judgement/Insight
Data Reviewed
-
CT Scan: Report Reviewed by me
Medical Tests (Nuc Med, Echo etc): Report Reviewed by me (ERCP, EUS, EGD reports)
Labs: Labs Reviewed by me
[2025-02-01] MEDS: MORPHINE SULFATE 2 MG IV (13:00)
--- NOTE | 2025-02-01 14:30 | W.DCSUMMARY ---
Discharge Summary
Discharge Data
Date of Admission: 01/29/25
Date of Discharge: 02/01/25
-
Pending Results: No
Hospital Course
Principal Diagnosis:
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
Transaminitis due to above
Chronic Diagnoses:�
GERD
Consultations:�
Gastroenterology
Oncology
Procedures:�
EGD: severe mucosal changes, nodularity, congestion and friability (with contact bleeding) were found in the second portion of the duodenum and in the area of the papilla.
EUS: Pancreatic parenchymal abnormalities, A mass was found in the lower third of the main bile duct and in the intraduodenal bile duct. Tissue has not been obtained. Ampullary/periampullary neoplasm vs infiltrating pancreatic neoplasm, favor
ampullary lesion. A mass like was found in the ampulla.
Five enlarged lymph nodes were visualized in the celiac region. Cytology results are pending. Fine needle biopsy performed.
ERCP:
- The major papilla appeared to have a mass like lesion suspicious for duodenal adenocarcinoma vs ampullary neoplasm.
- Biopsies were taken in the ampulla, in the second portion of the duodenum and in the area of the papilla.
- A single severe biliary stricture was found in the lower third of the main bile duct. The stricture was malignant appearing.
- The common bile duct was severely dilated.
- A biliary sphincterotomy was performed.
- Cells for cytology obtained in the lower third of the main bile duct.
- Biopsy was performed in the lower third of the main bile duct.
- One covered metal stent was placed into the common bile duct.
- One plastic stent was placed into the common hepatic duct.
- One pancreatic stent was placed into the ventral pancreatic duct.
Clinical course:�
This is a 64-year-old male with past medical history of GERD, who presented with painless obstructive jaundice with mild nausea.
Problem 1:
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
This was associated with transaminitis.
He underwent EGD, EUS and ERCP on 01/30, reports as above.
Significant findings from these procedures noted likely pancreatic/ampullary mass, with local lymph node spread, and possible distal pulmonary metastases.
GI stents were placed in the common bile duct, common hepatic duct, and ventral pancreatic duct to relieve obstruction.
The patient has been informed to follow-up the biopsy results with GI/oncology outpatient.
Outpatient oncology eval for chemotherapy guidance.
He should also follow-up with GI Dr. Mcfadden outpatient for stent retrieval/exchanges.
He can monitor his LFT outpatient with result to his PCP/GI.
As for the rest of his medical problems, they were stable during his hospital stay.
Discharge Plan
-
Patient Disposition: Home (Routine Discharge)
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
Elevated LFT due to above;
Status post EGD/EUS/ERCP;
Status post stents placement of the common bile duct, common hepatic duct, ventral pancreatic duct.
Condition: Fair
Diet: As tolerated, Low Fat and Low Cholesterol
Activity: As tolerated
Driving Restrictions: As prior to admission
Blood Work: CMP and CBC in 5 days with result to your PCP/GI -- see slip
Activity Restrictions/Additional Instructions:
Follow up pathology results with the oncologist and GI doctor.
Coordinate follow up with Dr. Mcfadden for stent retrieval/exchanges as outpatient
Referrals:
Chris Mcfadden MD [Active, Gastroenterology] - in three to four weeks
NONE,* [Family Provider, Internal Medicine] - in less than 1 week
Prescriptions:
Continued
ascorbic acid (vitamin C) [Vitamin C] 500 mg Tablet
1,000 mg PO DAILY
vitamin B complex Tablet
1 tab PO DAILY
bismuth subsalicylate [Pepto-Bismol] 262 mg/15 mL Suspension
524 mg PO ONCE PRN (Reason: stomach upset)
Acidophilus Capsule
1 cap PO DAILY
cholecalciferol (vitamin D3) 25 mcg (1,000 unit) Capsule
25 mcg PO Q48H
red yeast rice 600 mg Capsule
600 mg PO Q48H
grape seed extract
1 cap PO Q48H
lecithin
1 cap PO Q48H
vitamin A
1 cap PO DAILY
zinc
1 tab PO DAILY
Discontinued
ibuprofen 200 mg Tablet
200 mg PO DAILYPRN PRN (Reason: mild pain)
Discharge Orders:
Discharge Patient (As Directed); Ordered 02/01/25
Ordered By: Dona Chinchilla
Discharge Date and Time
Print Language: MAORI
[2025-02-01 15:00] VITALS: BP 153/99
--- NOTE | 2025-02-01 15:24 | CM ---
CM reviewed chart and noted dc order
Pt discharged prior to CM being able to issue IMM
per chart review, no dc needs noted
Discharge Disposition- home, no needs
--- NOTE | 2025-02-07 13:15 | PN.CDI ---
CDI
- -
CDI:
Physician Documentation Request
Admit Date: 01/29/25 22:33
Dear Doctor Renée,
Please review the following and provide your response in the progress notes.
The purpose of this query is to ensure the accuracy of the conditions reported for your patient.
Clinical indicators:
Discharge Summary, 02/01
#Discharge Diagnosis:
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
#...vs ampullary neoplasm, with possible pulmonary metastasis;
Pathology, 02/05
#Final Diagnosis
#...A. Distal common duct stricture biopsy-
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
#...B. Periampullar, abnormal mucosa, biopsy-
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
The request is for one of the following, please clarify the discharge diagnosis with the pathology results:
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
A more appropriate diagnosis, reflecting the patient's condition
Other (please specify)
Use of terms such as suspected, likely, concern for, or probable (associated with a specific diagnosis that is being evaluated, monitored, or treated as if it exists) are acceptable and can be coded in the inpatient setting, when documented at the
time of discharge.
Thank you,
Citlaly Bernal RN BSN CCDS
CDI Specialist
Please contact via tiger text
Please use your independent medical judgment in providing your response.
== END 2025-02-01 15:10 | disposition home or self-care (01) | DRG 435 ==
LOC: 4 EAST ACU 22:33
PROVIDERS: Internal Medicine; Internal Medicine Gastroenterology; Nurse Practitioner Adult Health; Student in an Organized Health Care Education/Training Program; ADMITTING PHYSICIAN Internal Medicine; ATTENDING PHYSICIAN Internal Medicine; CONSULT PHYSICIAN Internal Medicine; CONSULT PHYSICIAN Internal Medicine Hematology & Oncology; EMERGENCY PHYSICIAN Emergency Medicine
PROC: 079 Lymphatic and Hemic Systems, Drainage (ICD-10-PCS; 2025-01-30)
PROC: 0F798DZ Dilation of Common Bile Duct with Intraluminal Device, Via Natural or Artificial Opening Endoscopic (ICD-10-PCS; 2025-01-30)
PROC: 0F7F8DZ Dilation of Accessory Pancreatic Duct with Intraluminal Device, Via Natural or Artificial Opening Endoscopic (ICD-10-PCS; 2025-01-30)
PROC: 0DJ08ZZ Inspection of Upper Intestinal Tract, Via Natural or Artificial Opening Endoscopic (ICD-10-PCS; 2025-01-30)
PROC: BF111ZZ Fluoroscopy of Biliary and Pancreatic Ducts using Low Osmolar Contrast (ICD-10-PCS; 2025-01-30)
PROC: BW41ZZZ Ultrasonography of Abdomen and Pelvis (ICD-10-PCS; 2025-01-30)
PROC: 0F778DZ Dilation of Common Hepatic Duct with Intraluminal Device, Via Natural or Artificial Opening Endoscopic (ICD-10-PCS; 2025-01-30)
PROC: 0FB98ZX Excision of Common Bile Duct, Via Natural or Artificial Opening Endoscopic, Diagnostic (ICD-10-PCS; 2025-01-30)
PROC: 0FBC8ZX Excision of Ampulla of Vater, Via Natural or Artificial Opening Endoscopic, Diagnostic (ICD-10-PCS; 2025-01-30)
DX: C25.0 Malignant neoplasm of head of pancreas (principal); K83.1 Obstruction of bile duct; E87.1 Hypo-osmolality and hyponatremia; R17 Unspecified jaundice; C77.2 Secondary and unspecified malignant neoplasm of intra-abdominal lymph nodes; C78.02 Secondary malignant neoplasm of left lung; C78.01 Secondary malignant neoplasm of right lung; C78.7 Secondary malignant neoplasm of liver and intrahepatic bile duct; K21.9 Gastro-esophageal reflux disease without esophagitis; K86.9 Disease of pancreas, unspecified; F41.9 Anxiety disorder, unspecified; R74.8 Abnormal levels of other serum enzymes; K31.89 Other diseases of stomach and duodenum; R59.0 Localized enlarged lymph nodes; Z80.0 Family history of malignant neoplasm of digestive organs
CPT/HCPCS: 70030; 71250; 74177; 74183; 74330; 76000; 78226; 80053; 82105; 82248; 82378; 83690; 83735; 85025; 85027; 85610; 86301; 88112; 88173; 88305; 88341; 88342; 93005; 99285; A9537; A9575; C1726; C1769; C1874; C2617; Q9967